=== PATIENT | female | born 2000 | race Caucasian/White ===

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

== ENCOUNTER 2021-04-08 14:50 | Emergency (ER) | payer MEDICAID, OTHER ==
[~2021-04-08] VITALS: Ht 152.4 cm; Wt 102.2 kg
[~2021-04-08 14:50] MED LIST changes: +IBUP-1060 PO
[2021-04-08 15:44] LABS: BILIRUBIN,URINE NEGATIVE (NEG); CLARITY,URINE CLEAR; COLOR,URINE YELLOW; NITRITE,URINE NEGATIVE (NEG); PROTEIN,URINE NEGATIVE (NEG-TRACE); UROBILINOGEN,URINE 0.2 mg/dL (0.2 mg/dL)
[2021-04-08 15:50] LABS: BARBITURATES NEG (NEG); BENZODIAZEPINES NEG (NEG); CANNABINOIDS NEG (NEG); COCAINE NEG (NEG); METHADONE NEG (NEG); OPIATES NEG (NEG); PHENCYCLIDINE NEG (NEG)
[2021-04-08 15:52] LABS: AMPHETAMINE/METHAMPHETAMINE NEG (NEG)
[2021-04-08 15:55] LABS: RBC,URINE 0 /HPF (0-2)
[2021-04-08 15:56] LABS: BACTERIA,URINE 0 /HPF (0-FEW); WBC,URINE RARE /HPF (0-4)
[2021-04-08 15:56] LABS: BASO # 0.1 x10^3/uL (0.0-0.2); BASO % 1 % (0-3); EOS # 0.1 x10^3/uL (0.0-0.7); EOS % 1 % (0-3); HEMATOCRIT 37.3 % (36.0-47.0); HEMOGLOBIN 12.3 g/dL (12.0-15.5); LYMPH # 2.3 x10^3/uL (1.0-4.8); LYMPH % 24 % (24-48); MEAN CORPUSCULAR HEMOGLOBIN 29 pg (25-35); MEAN CORPUSCULAR HGB CONC 33 g/dL (31-37); MEAN CORPUSCULAR VOLUME 87 fL (79-100); MONO # 0.7 x10^3/uL (0.0-1.1); MONO % 7 % (0-9); NEUT # 6.5 x10^3/uL (1.8-7.7); NEUT % 67 % (31-73); PLATELET COUNT 305 x10^3/uL (140-400); RED BLOOD COUNT 4.28 x10^6/uL (3.50-5.40); RED CELL DISTRIBUTION WIDTH 13.5 % (11.5-14.5); WHITE BLOOD COUNT 9.6 x10^3/uL (4.0-11.0)
[2021-04-08 16:07] LABS: CALCIUM 9.1 mg/dL (8.5-10.1); CREATININE 0.6 mg/dL (0.6-1.0); GFR 127.5; POTASSIUM 4.1 mmol/L (3.5-5.1)
[2021-04-08 16:13] LABS: ALBUMIN 3.7 g/dL (3.4-5.0); ALBUMIN/GLOBULIN RATIO 0.8 (1.0-1.7); TOTAL BILIRUBIN 0.2 mg/dL (0.2-1.0); TOTAL PROTEIN 8.2 g/dL (6.4-8.2)
--- NOTE | 2021-04-08 16:20 | RAD ---
EXAM: Abdomen sonogram. HISTORY: Pain. TECHNIQUE: Sonographic imaging of the abdomen was performed. COMPARISON: None. FINDINGS: The liver is normal in size. There is suspected mild hepatic steatosis. There is a single m obile gallstone measuring 2.0 cm. The common bile duct is unremarkable. The pancreas, aorta and infer ior vena cava are partially obscured due to bowel gas. The right kidney is unremarkable. IMPRESSION: 1. Cholelithiasis. 2. Suspected mild hepatic steatosis. Electronically signed by: Tiffanie Guerrero MD (04/08/2021 4:17 PM) [id number]
[2021-04-08] MEDS ORDERED: IOHEXOL 350 MG/ML 100 ML VIAL. IV ONE (16:45)
[2021-04-08] MEDS ORDERED: CONTRAST GIVEN. MC PRN (16:45)
--- NOTE | 2021-04-08 17:15 | RAD ---
EXAM: CT chest with contrast - pulmonary embolus protocol CLINICAL HISTORY: pain between shoulder blades COMPARISON: None. TECHNIQUE: CT of the chest following the administration of intravenous contrast during the pulmonary arterial phase. Axial, coronal and sagittal reformatted images were generated including MIP images. ---PQRS compliance statement - One or more of the following individualized dose reduction techniques were utilized for this study: 1. Automated exposure control 2. Adjustment of the mA and/or kV according to patient size 3. Use of iterative reconstruction technique--- FINDINGS: CHEST: Diagnostic quality: Adequate. Pulmonary emboli: No pulmonary emboli to the level of the segmental branches. More peripheral vessel s are not well assessed. Right heart strain: None Pulmonary arteries: Normal in caliber. Linear and wedge-shaped opacities middle lobe likely scarring/atelectasis. 4 mm middle lobe lung nodu le (image 74). Heart is not enlarged. No pericardial effusion. No pleural effusion. No pneumothorax. No axillary lym phadenopathy. No mediastinal or hilar lymphadenopathy. Anterior mediastinal soft tissue density likel y residual thymus. Visualized Upper abdomen: Unremarkable Bones: No aggressive osseous lesion. IMPRESSION: 1. No pulmonary emboli to the level of the segmental branches. More peripheral vessels are not well assessed. 2. 4 mm middle lobe lung nodule is seen. Electronically signed by: Swapnil Beck MD (04/08/2021 5:12 PM) NGHIA
[2021-04-08] MEDS ORDERED: LIDO:MAALOX 1:1 20 ML SINGLE DOSE. SWSW ONE (17:30)
[2021-04-08] MEDS ORDERED: ONDANSETRON PF 4 MG/2 ML VIAL. IVP ONE (17:30)
[2021-04-08] MEDS ORDERED: KETOROLAC 30 MG/ML VIAL. IVP ONE (17:30)
[2021-04-08] MEDS ORDERED: DICL50TA2 PO (18:00)
[2021-04-08] MEDS ORDERED: ONDA4TAB12 PO (18:00)
--- NOTE | 2021-04-08 18:00 | PHYS DOC ---
Past Medical History Past Medical History: Asthma, Pneumonia Additional Past Medical Histor: Kidney stones (CT 11/12/16) Past Surgical History: Tonsillectomy, Other Additional Past Surgical Histo: ADENOIDS Smoking Status: Current Every Day Smoker Additional Information: 0.5 PPD Alcohol Use: None Drug Use: None General Adult EDM: Chief Complaint: BACK PAIN OR INJURY HPI: HPI: Patient is a 20 year old female with no significant medical history who presents to the ED today complaining of a sharp 7 out of 10 pain between her shoulder blades, patient states the pain began this morning. She states the pain is intermittent. Denies any nausea, vomiting, diarrhea. Denies any fever. Reports being on control. Review of Systems: Review of Systems: Constitutional: Denies fever or chills. [] Eyes: Denies change in visual acuity. [] HENT: Denies nasal congestion or sore throat. [] Respiratory: Denies cough or shortness of breath. [] Cardiovascular: Reports pain between her shoulder blades GI: Denies abdominal pain, nausea, vomiting, bloody stools or diarrhea. [] : Denies dysuria. [] Musculoskeletal: Denies back pain or joint pain. [] Integument: Denies rash. [] Neurologic: Denies headache, focal weakness or sensory changes. [] Psychiatric: Denies depression or anxiety. [] Heart Score: C/O Chest Pain: N/A Risk Factors: Risk Factors: DM, Current or recent (<one month) smoker, HTN, HLP, family history of CAD, obesity. Risk Scores: Score 0 - 3: 2.5% MACE over next 6 weeks - Discharge Home Score 4 - 6: 20.3% MACE over next 6 weeks - Admit for Clinical Observation Score 7 - 10: 72.7% MACE over next 6 weeks - Early Invasive Strategies Current Medications: Current Medications Medications (Trade) Dose Ordered Sig/Inge Start Time Stop Time Status Last Admin Dose Admin Info (CONTRAST GIVEN -- Rx MONITORING) 1 each PRN DAILY PRN 04/08/21 16:45 04/10/21 16:44 Iohexol (Omnipaque 350 Mg/ml) 100 ml 1X ONCE 04/08/21 16:45 04/08/21 16:46 DC 04/08/21 17:04 100 ML Ketorolac Tromethamine (Toradol 30mg Vial) 30 mg 1X ONCE 04/08/21 17:30 04/08/21 17:31 DC Multi-Ingredient Mouthwash/Gargle (Gi Cocktail) 20 ml 1X ONCE 04/08/21 17:30 04/08/21 17:31 DC Ondansetron HCl (Zofran) 4 mg 1X ONCE 04/08/21 17:30 04/08/21 17:31 DC Allergies: Allergies: Allergies Coded Allergies Type Severity Reaction Last Updated Verified No Known Drug Allergies 10/13/15 No Physical Exam: PE: Constitutional: Well developed, well nourished, no acute distress, non-toxic appearance. [] HENT: Normocephalic, atraumatic, bilateral external ears normal, oropharynx moist, no oral exudates, nose normal. [] Eyes: PERRLA, EOMI, conjunctiva normal, no discharge. [] Neck: Normal range of motion, no tenderness, supple, no stridor. [] Cardiovascular:Heart rate regular rhythm, no murmur [] Lungs & Thorax: Bilateral breath sounds clear to auscultation [] Abdomen: Bowel sounds normal, soft, no tenderness, no masses, no pulsatile masses. [] Skin: Warm, dry, no erythema, no rash. [] Back: No tenderness, no CVA tenderness. [] Extremities: No tenderness, no cyanosis, no clubbing, ROM intact, no edema. [] Neurologic: Alert and oriented X 3, normal motor function, normal sensory function, no focal deficits noted. [] Psychologic: Affect normal, judgement normal, mood normal. [] Current Patient Data: Labs: Laboratory Tests Test 04/08/21 15:15 04/08/21 15:29 04/08/21 15:40 Urine Collection Type Void Urine Color Yellow Urine Clarity Clear Urine pH 6.0 (<5.0-8.0) Urine Specific Carnegie <=1.005 (1.000-1.030) Urine Protein Negative mg/dL (NEG-TRACE) Urine Glucose (UA) Negative mg/dL (NEG) Urine Ketones (Stick) Negative mg/dL (NEG) Urine Blood Negative (NEG) Urine Nitrite Negative (NEG) Urine Bilirubin Negative (NEG) Urine Urobilinogen Dipstick 0.2 mg/dL (0.2 mg/dL) Urine Leukocyte Esterase Negative (NEG) Urine RBC 0 /HPF (0-2) Urine WBC Rare /HPF (0-4) Urine Squamous Epithelial Cells Many /LPF Urine Bacteria 0 /HPF (0-FEW) Urine Opiates Screen Neg (NEG) Urine Methadone Screen Neg (NEG) Urine Barbiturates Neg (NEG) Urine Phencyclidine Screen Neg (NEG) Urine Amphetamine/Methamphetamine Neg (NEG) Urine Benzodiazepines Screen Neg (NEG) Urine Cocaine Screen Neg (NEG) Urine Cannabinoids Screen Neg (NEG) Urine Ethyl Alcohol Neg (NEG) POC Urine HCG, Qualitative Hcg negative (Negative) White Blood Count 9.6 x10^3/uL (4.0-11.0) Red Blood Count 4.28 x10^6/uL (3.50-5.40) Hemoglobin 12.3 g/dL (12.0-15.5) Hematocrit 37.3 % (36.0-47.0) Mean Corpuscular Volume 87 fL (79-100) Mean Corpuscular Hemoglobin 29 pg (25-35) Mean Corpuscular Hemoglobin Concent 33 g/dL (31-37) Red Cell Distribution Width 13.5 % (11.5-14.5) Platelet Count 305 x10^3/uL (140-400) Neutrophils (%) (Auto) 67 % (31-73) Lymphocytes (%) (Auto) 24 % (24-48) Monocytes (%) (Auto) 7 % (0-9) Eosinophils (%) (Auto) 1 % (0-3) Basophils (%) (Auto) 1 % (0-3) Neutrophils # (Auto) 6.5 x10^3/uL (1.8-7.7) Lymphocytes # (Auto) 2.3 x10^3/uL (1.0-4.8) Monocytes # (Auto) 0.7 x10^3/uL (0.0-1.1) Eosinophils # (Auto) 0.1 x10^3/uL (0.0-0.7) Basophils # (Auto) 0.1 x10^3/uL (0.0-0.2) D-Dimer (Colleen) 0.63 ug/mlFEU (0.00-0.50) H Sodium Level 139 mmol/L (136-145) Potassium Level 4.1 mmol/L (3.5-5.1) Chloride Level 103 mmol/L (98-107) Carbon Dioxide Level 26 mmol/L (21-32) Anion Gap 10 (6-14) Blood Urea Nitrogen 9 mg/dL (7-20) Creatinine 0.6 mg/dL (0.6-1.0) Estimated GFR (Cockcroft-Gault) 127.5 BUN/Creatinine Ratio 15 (6-20) Glucose Level 86 mg/dL (70-99) Calcium Level 9.1 mg/dL (8.5-10.1) Total Bilirubin 0.2 mg/dL (0.2-1.0) Aspartate Amino Transferase (AST) 12 U/L (15-37) L Alanine Aminotransferase (ALT) 27 U/L (14-59) Alkaline Phosphatase 62 U/L (46-116) Total Protein 8.2 g/dL (6.4-8.2) Albumin 3.7 g/dL (3.4-5.0) Albumin/Globulin Ratio 0.8 (1.0-1.7) L Ethyl Alcohol Level < 10 mg/dL (0-10) Laboratory Tests 04/08/21 15:40 Laboratory Tests 04/08/21 15:40 Vital Signs: Vital Signs Date Time Temp Pulse Resp B/P (MAP) Pulse Ox O2 Delivery O2 Flow Rate FiO2 04/08/21 15:12 98.6 90 16 148/92 (110) 98 Room Air 98.6 EKG: EKG: [] Radiology/Procedures: Radiology/Procedures: []PROCEDURE: CT ANGIOGRAPHY CHEST EXAM: CT chest with contrast - pulmonary embolus protocol CLINICAL HISTORY: pain between shoulder blades COMPARISON: None. TECHNIQUE: CT of the chest following the administration of intravenous contrast during the pulmonary arterial phase. Axial, coronal and sagittal reformatted images were generated including MIP images. ---PQRS compliance statement - One or more of the following individualized dose reduction techniques were utilized for this study: 1. Automated exposure control 2. Adjustment of the mA and/or kV according to patient size 3. Use of iterative reconstruction technique--- FINDINGS: CHEST: Diagnostic quality: Adequate. Pulmonary emboli: No pulmonary emboli to the level of the segmental branches. More peripheral vessels are not well assessed. Right heart strain: None Pulmonary arteries: Normal in caliber. Linear and wedge-shaped opacities middle lobe likely scarring/atelectasis. 4 mm middle lobe lung nodule (image 74). Heart is not enlarged. No pericardial effusion. No pleural effusion. No pneumothorax. No axillary lymphadenopathy. No mediastinal or hilar lymphadenopathy. Anterior mediastinal soft tissue density likely residual thymus. Visualized Upper abdomen: Unremarkable Bones: No aggressive osseous lesion. IMPRESSION: 1. No pulmonary emboli to the level of the segmental branches. More peripheral vessels are not well assessed. 2. 4 mm middle lobe lung nodule is seen. Electronically signed by: Swapnil Campbell MD (04/08/2021 5:12 PM) [facility] DICTATED and SIGNED BY: SWAPNIL CAMPBELL MD DATE: 04/08/21 [id number] 0 PROCEDURE: ABDOMEN LTD EXAM: Abdomen sonogram. HISTORY: Pain. TECHNIQUE: Sonographic imaging of the abdomen was performed. COMPARISON: None. FINDINGS: The liver is normal in size. There is suspected mild hepatic steatosis. There is a single mobile gallstone measuring 2.0 cm. The common bile duct is unremarkable. The pancreas, aorta and inferior vena cava are partially obscured due to bowel gas. The right kidney is unremarkable. IMPRESSION: 1. Cholelithiasis. 2. Suspected mild hepatic steatosis. Electronically signed by: Tiffanie Oliver MD (04/08/2021 4:17 PM) [id number] DICTATED and SIGNED BY: TIFFANIE OLIVER MD DATE: 04/08/21 [id number] 0 Course & Med Decision Making: Course & Med Decision Making Pertinent Labs and Imaging studies reviewed. (See chart for details) This is a 20-year-old female patient presenting to the ED today with pain between her shoulder blades that began this morning. PERC score positive due to use of control. D-dimer 0.63, CTA chest is n egative, right upper quadrant ultrasound noted for cholelithiasis CBC CMP UA negative for infection Patient's pain is controlled. She was given general surgeon for follow-up as an outpatient. Diamond Disclaimer: Diamond Disclaimer: This electronic medical record was generated, in whole or in part, using a voice recognition dictation system. Departure Departure Impression: Primary Impression: Cholelithiasis Qualified Codes: K80.80 - Other cholelithiasis without obstruction Disposition: HOME / SELF CARE / HOMELESS Condition: STABLE Referrals: NO PCP (PCP) WELLINGTON HUERTA MD follow up in one week Patient Instructions: Cholelithiasis Additional Instructions: You were evaluated in the emergency room and noted to have gallstones. Please contact the provided general surgeon as an outpatient in 1-2 weeks Scripts Diclofenac Potassium (DICLOFENAC POTASSIUM) 50 Mg Tablet 1 TAB PO BID, #20 TAB 0 Refills Prov: JENN GANDHI APRN 04/08/21 Ondansetron (ONDANSETRON ODT) 4 Mg Tab.rapdis 1 TAB PO PRN Q6-8HRS, #16 TAB Prov: JENN GANDHI APRN 04/08/21 JENN GANDHI APRN Apr 08, 2021 18:00
[2021-04-08 18:18] VITALS: BP 137/89
== END 2021-04-08 18:15 | disposition home or self-care (01) ==
LOC: ER 14:50
DX: K80.80 Other cholelithiasis without obstruction (principal); J45.909 Unspecified asthma, uncomplicated; F17.200 Nicotine dependence, unspecified, uncomplicated; Z87.442 Personal history of urinary calculi
CPT/HCPCS: 36415; 71275; 76705; 80053; 80307; 81001; 81025; 85025; 85379; 96374; 96375; 99285; G0480; J1885; J2405; Q9967

== ENCOUNTER → 2021-04-25 | Outpatient (CLI) | payer OTHER ==
[2021-04-08 18:18] VITALS: BP 137/89
[~2021-04-25] MED LIST changes: +DICL50TA2 PO; +DOCU-109 PO; +HYDR-2759 PO; +ONDA4TAB12 PO; +VENTOLIN HFA18 GM INH
== END ==
LOC: LAB 09:30
PROVIDERS: ATTEND Surgery
DX: Z01.812 Encounter for preprocedural laboratory examination (principal); Z20.822 Contact with and (suspected) exposure to COVID-19
CPT/HCPCS: U0003; U0005

== ENCOUNTER 2021-04-26 11:16 | Day surgery (SDC) | payer OTHER ==
[~2021-04-26] VITALS: Ht 152.4 cm; Wt 102.7 kg
[~2021-04-26 11:16] MED LIST changes: +BISACODYL 10 MG SUPP.RECT. ONE; +BUPIVACAINE-EPI 0.5% 30 ML VIAL KIT. ONE; -DOCU-109 PO; +HEPARIN 1,000 UNIT in IV NORMAL SALINE 1,000 ML for SURG PERIOP IRR ONE; -HYDR-2759 PO; +HYDROmorphone 2 MG/ML INJ. IVP PRN; +IOHEXOL 300 MG/ML 50 ML VIAL. ONE; +IV RINGERS,LACTATED 1000ML 1,000 ML IV SCH; +SURGICEL HEMOSTAT 4X8 EACH. ONE; +fentaNYL PF VIAL 100 MCG/2 ML VIAL IVP PRN
[2021-04-26 11:47] VITALS: BP 120/79
[2021-04-26] MEDS ORDERED: fentaNYL PF VIAL 100 MCG/2 ML VIAL ONE ×2 (12:02→13:28)
[2021-04-26] MEDS ORDERED: PROPOFOL 10 MG/ML (20ML) VIAL. IV ONE (12:02)
[2021-04-26] MEDS ORDERED: DEXAMETHASONE SOD PHOS 20 MG/5 ML VIAL. ONE (12:02)
[2021-04-26] MEDS ORDERED: ONDANSETRON PF 4 MG/2 ML VIAL. ONE (12:02)
[2021-04-26] MEDS ORDERED: ROCURONIUM 50 MG/5 ML VIAL. ONE ×2 (12:02→13:31)
--- NOTE | 2021-04-26 13:03 | PDOC ---
SURGICAL PROGRESS NOTE DATE: 04/26/21 TIME: 13:01 Subjective Pre-Op Note 20 yo F with symptomatic cholelithiasis. Still with some pain RUQ TO OR for laparoscopic versus open cholecystectomy with cholangiogram. R/R/B/A d/w pt and pt's supportive family. Risks, including, but not limited to: bleeding, infection, damage to surrounding structures, risk of anesthesia, risk of open, risk of not resolving symptoms. They appear to understand, their questions are answered and they elect to proceed. Office note H&P reviewed and unchanged. Vital Signs Vital Signs Date Time Temp Pulse Resp B/P (MAP) Pulse Ox O2 Delivery O2 Flow Rate FiO2 04/26/21 11:52 98.6 94 20 120/79 97 Room Air 98.6 Labs Laboratory Tests Test 04/26/21 11:36 Bedside Urine HCG, Qualitative Hcg negative (Negative) Laboratory Tests Test 04/26/21 11:36 Bedside Urine HCG, Qualitative Hcg negative (Negative) Justicifation of Admission Dx: Justifications for Admission: Justification of Admission Dx: N/A WELLINGTON HUERTA MD Apr 26, 2021 13:03
[2021-04-26] MEDS ORDERED: GLYCOPYRROLATE 1 MG/5 ML VIAL. ONE (13:20)
[2021-04-26] MEDS ORDERED: NEOSTIGMINE METHYLSULFATE 5 MG/5 ML SYRINGE. ONE (13:25)
[2021-04-26] MEDS ORDERED: ePHEDrine PF IN SALINE 50 MG/10 ML SYRINGE. IV ONE (14:07)
[2021-04-26] MEDS ORDERED: SUGAMMADEX SODIUM 200 MG/2 ML VIAL. IVP ONE ×2 (14:15)
[2021-04-26] MEDS ORDERED: PROCHLORPERAZINE 10 MG/2 ML VIAL. ONE (14:27)
[2021-04-26] MEDS ORDERED: MORPHINE SULFATE 2 MG/ML INJ. ONE ×3 (14:32→15:52)
[2021-04-26] MEDS: PROCHLORPERAZINE 10 MG/2 ML VIAL. IVP PRN ×2 (14:34→15:25)
[2021-04-26] MEDS: MORPHINE SULFATE 2 MG/ML INJ. IVP PRN ×6 (14:36→16:27)
--- NOTE | 2021-04-26 14:40 | PDOC4 ---
OPERATIVE NOTE Date: Date: Apr 26, 2021 Pre-Op Diagnosis: Symptomatic cholelithiasis Post-Op Diagnosis: Calculous cholecystitis Procedure Performed: laparoscopic cholecystectomy with cholangiogram Surgeon: Jose Huerta Anesthesia Type: GETA plus local Blood Loss: 50 Specimans Obtained: gallbladder Findings: morbid obesity making procedure difficult throughout, adhesions to gallbladder, normal cholangiogram Complications: none Operative Note: After obtaining informed consent, patient was taken to OR, induced under GETA and prepped in the usual fashion. 5 mm port placed umbilical and RUQ, 12 port placed epigastric, all under laparoscopic guidance. Abdominal cavity was explored and noted as above. Gallbladder taken off fossa using cautery in dome down fashion. Cystic artery ligated with clips. Cholangiogram obtained via cystic duct (only remaining structure) and was normal. Cystic duct controlled with hemolok and clips. Gallbladder placed in bag, delivered and sent to pathology. Copious irrigation. No evidence of bleeding or other pathology. Ports removed without bleeding. Fascia repaired with 0 vicryl and skin repaired with 4 0 monocryl. Dressing placed. Patient tolerated procedure well and sent to PACU in stable condition. All counts correct. Wound class is 2. WELLINGTON HUERTA MD Apr 26, 2021 14:40
[2021-04-26] MEDS ORDERED: 0.9 % SODIUM CHLORIDE 10 ML DISP.SYRIN. IV PRN (14:45)
[2021-04-26] MEDS ORDERED: DEXTROSE 50% 25 GM / 50ML DISP.SYRIN. IV PRN (14:45)
[2021-04-26] MEDS ORDERED: IV NORMAL SALINE 1000ML BAG 1,000 ML IV SCH (14:45)
[2021-04-26] MEDS ORDERED: NALOXONE 0.4 MG/ML VIAL. IV PRN (14:45)
[2021-04-26] MEDS ORDERED: HYDROcodone/APAP 5/325MG 1 TAB TABLET PO PRN (14:45)
[2021-04-26] MEDS ORDERED: IV RINGERS,LACTATED 1000ML 1,000 ML IV SCH (14:45)
[2021-04-26] MEDS ORDERED: ONDANSETRON PF 4 MG/2 ML VIAL. IVP PRN (14:45)
[2021-04-26] MEDS ORDERED: DOCU-109 PO (16:01)
[2021-04-26] MEDS ORDERED: HYDR-2759 PO (16:04)
[2021-04-26] MEDS ORDERED: HYDROcodone/APAP 5/325MG 1 TAB TABLET PO ONE (16:15)
[2021-04-26 16:30] VITALS: BP 139/70
--- NOTE | 2021-04-26 16:58 | RAD ---
Study: DG INTRAOPERATIVE CHOLANGIOGRAM Indication: Cholangiogram. Comparison: None. Findings: Fluoroscopy time: 0.10 minutes Fluoroscopic images: 3 Cholecystectomy clips. Bile duct cannulization and administration of contrast with opacification of t he intrahepatic and extrahepatic biliary tree and excretion of contrast into the duodenum. Nondilated common duct. No filling defect is identified on the provided images. Impression: Cholangiogram in the setting of cholecystectomy. No bile duct dilatation, filling defect or free spil douglas of contrast. See the operative report for details. Electronically signed by: REI KLINE MD (04/26/2021 4:56 PM) [facility]
[2021-04-26] MEDS ORDERED: DOCUSATE SODIUM 100 MG CAPSULE. PO SCH (21:00)
--- NOTE | 2021-04-29 14:07 | PATHOLOGY ---
[facility] Accession Number: [id number] . 01 Material submitted: . gallbladder - GALLBLADDER AND CONTENTS . 01 Clinical history: . CHOLECYSTITIS, SYMPTOMATIC CHOLELITHIASIS LAP FIFI WITH GRAMS . 02 Diagnosis: Gallbladder, laparoscopic cholecystectomy: - Cholelithiasis. - Cholesterolosis, focal. - Chronic cholecystitis. - Reactive changes of gallbladder neck lymph node. ([facility]:jeanine; 04/29/2021) MBR 04/29/2021 1245 Local . 02 Comment: There is no evidence of malignancy. ([facility]:jeanine; 04/29/2021) . 02 Electronically signed: . Abbe Pimentel MD, Pathologist NPI- [id number] . 01 Gross description: . Fixative: Formalin Labeled: Gallbladder and contents Specimen received: Intact Dimensions: 9.3 x 3.1 x 2.6 cm Serosa: Smooth, moore-green and glistening with a roughened hepatic bed Lymph node: Yes, measuring 1.1 x 0.6 x 0.5 cm Mucosa: Velvety, green-brown Average wall thickness: 0.3 cm Calculi: Ovoid moore-brown calculus measuring 2.2 x 1.6 x 1.6 cm Abnormalities: No A1- Track Man body, fundus, lymph node and the cystic duct margin(inked black). ([facility]; 04/27/2021) . GZA/GZA 04/29/2021 1244 Local . 02 Pathologist provided ICD-10: K80.10 . 02 CPT . 545838 Specimen Comment: A courtesy copy of this report has been sent to [phone] Specimen Comment: Report sent to Specimen Comment: A duplicate report has been generated due to demographic updates. Performed at: 01 [facility] [address] [facility] [address], [place] [id number] MD Stew Beth MD Phone: [phone] Performed at: 02 [facility] [address] [place], [place] [id number] MD Abbe Pimentel MD Phone: [phone]
== END 2021-04-26 17:05 | disposition home or self-care (01) ==
LOC: SURG 11:16
PROVIDERS: ATTEND Surgery
DX: K80.10 Calculus of gallbladder with chronic cholecystitis without obstruction (principal); J45.909 Unspecified asthma, uncomplicated; K21.9 Gastro-esophageal reflux disease without esophagitis; F41.9 Anxiety disorder, unspecified; F32.9 Major depressive disorder, single episode, unspecified; F17.210 Nicotine dependence, cigarettes, uncomplicated; Z79.899 Other long term (current) drug therapy; Z98.890 Other specified postprocedural states; Z72.89 Other problems related to lifestyle
CPT/HCPCS: 47563; 74300; 81025; 88304; A4213; A4314; A4930; A6219; C1887; J0690; J0780; J1100; J1644; J2270; J2405; J2704; J2710; J3010; J3490; J7030; Q9967